=== PATIENT | male | born 2000 | race African-American/Black ===

== ENCOUNTER 2025-04-14 10:54 | Emergency (ER) | payer OTHER ==
[~2025-04-14] VITALS: Ht 170.2 cm; Wt 72.7 kg
[2025-04-14 12:39] LABS: BASO # 0.1 10^3/uL (0.0-0.2); BASO % 0.6 % (0.0-1.0); EOS # 0.1 10^3/uL (0.0-0.5); EOS % 0.9 % (0.0-3.0); LYMPH # 2.6 10^3/uL (1.5-5.0); LYMPH % 32.9 % (24.0-44.0); MONO # 0.5 10^3/uL (0.0-0.8); MONO % 6.0 % (2.0-8.0); NEUTROPHILS # 4.7 10^3/uL (1.5-8.5); NEUTROPHILS % 59.2 % (36.0-66.0); PLATELET COUNT, AUTOMATED 310 10^3/uL (150-450)
[2025-04-14 13:02] LABS: CPK CREATINE PHOSPHOKINASE 188 U/L (46-171)
[2025-04-14 13:03] LABS: ALT/SGPT 16 U/L (7.0-40); AST/SGOT 23 U/L (<34); CALCIUM LEVEL 10.0 MG/DL (8.5-10.1); CARBON DIOXIDE LEVEL 30 MMOL/L (20-31); CHLORIDE LEVEL 103 MMOL/L (98-107); CK-MB VALUE MASS 2.8 NG/ML (<3.6); CREATININE FOR GFR 0.97 MG/DL (0.70-1.30); GLOMERULAR FILTRATION RATE > 90.0 (>60); MB/CK RELATIVE INDEX 1.48 (< OR =4); POTASSIUM SERUM 4.0 MMOL/L (3.5-5.1); SODIUM LEVEL 142 MMOL/L (136-145)
[2025-04-14 13:05] LABS: FREE T4 1.08 NG/DL (0.89-1.76)
[2025-04-14 13:07] LABS: AMPHETAMINES LEVEL URINE NEGATIVE (NEGATIVE); BARBITURATES URINE NEGATIVE (NEGATIVE); BENZODIAZEPINES URINE NEGATIVE (NEGATIVE); COCAINE METABOLITE URINE NEGATIVE (NEGATIVE); METHADONE URINE NEGATIVE (NEGATIVE); OPIATES URINE NEGATIVE (NEGATIVE); PHENCYCLIDINE URINE NEGATIVE (NEGATIVE)
[2025-04-14 13:08] LABS: CANNABINOIDS URINE NEGATIVE (NEGATIVE)
[2025-04-14] MEDS ORDERED: NITROGLYCERIN 0.4 MG SUBL TABLET SL PRN (13:20)
[2025-04-14] MEDS ORDERED: ISOVUE-370 76% 100 ML VIAL As Ordered ONE (13:31)
[2025-04-14 14:20] LABS: CK-MB VALUE MASS 3.2 NG/ML (<3.6)
[2025-04-14 14:28] LABS: CPK CREATINE PHOSPHOKINASE 183.0 U/L (46-171); MB/CK RELATIVE INDEX 1.74 (< OR =4)
[2025-04-14 14:45] VITALS: BP 135/90; O2SAT 100
[2025-04-14 15:13] VITALS: TEMP 97.9
== END 2025-04-14 15:47 | disposition home or self-care (01) ==
LOC: EDBD 10:54 → M ED 10:54
DX: R07.9 Chest pain, unspecified (principal); R74.8 Abnormal levels of other serum enzymes; I49.8 Other specified cardiac arrhythmias
CPT/HCPCS: 36415; 71046; 71275; 80048; 80076; 80307; 82550; 82553; 83690; 84439; 84443; 84484; 85025; 93005; 99284; Q9967